=== PATIENT | male | born 1995 | race American Indian/Alaskan Native ===

== ENCOUNTER 2021-12-10 14:34 | Emergency (ER) | payer SELFPAY ==
[2021-12-10 15:18] VITALS: BP 109/76
[2021-12-10] MEDS ORDERED: AZITHROMYCIN 250 MG TAB PO ONE (16:35)
[2021-12-10] MEDS ORDERED: LIDOCAINE-MPF (1%) 10 MG/1 ML VIAL 5 ML INFILTRATI ONE (16:35)
--- NOTE | 2021-12-10 17:05 | Emergency Department Report ---
ED General Adult HPI - General Chief complaint: Urogenital-Male Stated complaint: BURN DURING URINATION Time Seen by Provider: 12/10/21 16:28 Source: patient Mode of arrival: Ambulatory Limitations: No Limitations - History of Present Illness Initial comments: 26 y M was informed by his GF that she tested positive for chlamydia. Patient reports 1 day as of today with burning with urination 1 time. Patient denies any discharge no other acute signs and symptoms. Severity scale (0 -10): 2 - Related Data Previous Rx's Medication Instructions Recorded Last Taken Type Doxycycline Hyclate 100 mg PO BID 7 Days #14 cap 12/10/21 Unknown Rx Allergies Allergy/AdvReac Type Severity Reaction Status Date / Time No Known Allergies Allergy Verified 12/10/21 15:18 ED Review of Systems ROS: Stated complaint: BURN DURING URINATION Other details as noted in HPI Comment: All other systems reviewed and negative Genitourinary: dysuria ED Past Medical Hx - Past Medical History Previous Medical History?: No - Surgical History Past Surgical History?: No - Medications Home Medications: Home Medications Medication Instructions Recorded Confirmed Last Taken Type Doxycycline Hyclate 100 mg PO BID 7 Days #14 cap 12/10/21 Unknown Rx ED Physical Exam - General Limitations: No Limitations General appearance: alert, in no apparent distress - Head Head exam: Present: atraumatic, normocephalic - Eye Eye exam: Present: normal appearance - ENT ENT exam: Present: mucous membranes moist - Neck Neck exam: Present: normal inspection - Respiratory Respiratory exam: Present: normal lung sounds bilaterally. Absent: respiratory distress - Cardiovascular Cardiovascular Exam: Present: regular rate, normal rhythm. Absent: systolic murmur, diastolic murmur, rubs, gallop - GI/Abdominal GI/Abdominal exam: Present: soft, normal bowel sounds - Rectal Rectal exam: Present: deferred - exam: Present: other (Deferred) - Extremities Exam Extremities exam: Present: normal inspection - Back Exam Back exam: Present: normal inspection - Neurological Exam Neurological exam: Present: alert, oriented X3 - Psychiatric Psychiatric exam: Present: normal affect, normal mood - Skin Skin exam: Present: warm, dry, intact, normal color. Absent: rash ED Course Vital Signs 12/10/21 15:16 Temperature 98 F Pulse Rate 89 Respiratory 16 Rate Blood Pressure 109/76 [Right] O2 Sat by Pulse 98 Oximetry ED Medical Decision Making - Medical Decision Making 26 y M was informed by his GF that she tested positive for chlamydia. Patient reports 1 day as of today with burning with urination 1 time. Patient denies any discharge no other acute signs and symptoms. No acute findings on physical exam. Patient received 1000 mg of azithromycin p.o. and 500 mg of Rocephin IM here in the ER. For prophylactic treatment of gonorrhea chlamydia. Patient also sent home with doxycycline 100 mg twice daily for 7 days. Patient informed to follow-up with department or his primary care provider for repeat testing as needed. Patient agrees with plan of care and verbalized understanding patient is stable for discharge home. Patient informed if symptoms are to get worse to report back to the ER. Vital Signs 12/10/21 15:16 Temperature 98 F Pulse Rate 89 Respiratory 16 Rate Blood Pressure 109/76 [Right] O2 Sat by Pulse 98 Oximetry Critical care attestation.: If time is entered above; I have spent that time in minutes in the direct care of this critically ill patient, excluding procedure time. ED Disposition Clinical Impression: Exposure to STD Disposition: 01 HOME / SELF CARE / HOMELESS Is pt being admited?: No Condition: Stable Instructions: Safe Sex Prescriptions: Doxycycline Hyclate 100 mg PO BID 7 Days #14 cap
[2021-12-10 17:37] LABS: Mucus,Urine 1+ /HPF
[2021-12-10 17:49] LABS: Color,Urine Yellow (Yellow)
== END 2021-12-10 17:30 | disposition home or self-care (01) ==
LOC: ED 14:34
DX: Z20.2 Contact with and (suspected) exposure to infections with a predominantly sexual mode of transmission (principal); R30.0 Dysuria
CPT/HCPCS: 81001; 96372; 99283; J0696; J3490